=== PATIENT | female | born 1970 | race Caucasian/White ===

== ENCOUNTER 2017-03-06 19:30 | Inpatient (IN) | payer BC ==
[~2017-03-06] VITALS: Ht 162.6 cm; Wt 90.4 kg
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
[2017-03-07] MEDS ORDERED: ZYRTEC10 MG PO (01:32)
[2017-03-07] MEDS ORDERED: LISINOPRIL-HCT1 EACH PO (01:33)
[2017-03-07 05:16] LABS: BASOPHIL % 0.2 %; HEMATOCRIT 34.5 % (33.0-46.0); IMMATURE GRANULOCYTE # 0.1 K/uL (0.0-0.3); IMMATURE GRANULOCYTE % 0.5 %; LYMPHOCYTE # 0.7 K/uL (0.8-4.0); LYMPHOCYTE % 5.3 %; MCHC 34.8 gm/dL (32.0-36.5); MCV 86.3 fl (83.0-98.0); MONOCYTE # 0.2 K/uL (0.0-1.0); MONOCYTE % 1.4 %; MPV 9.4 fl (9.4-12.4); NEUTROPHIL # (ANC) 11.6 K/uL (1.8-7.8); NEUTROPHIL % 92.6 %; NRBC % 0 /100WBC (0-0.00); PLATELET COUNT 279 K/uL (150-450); RDW-CV 13.5 % (11.9-14.6); WBC 12.5 K/uL (4.0-11.0)
[2017-03-07] MEDS ORDERED: PRILOSEC20 MG PO (11:15)
[2017-03-07] MEDS ORDERED: FLONASE 50 MCG/16 GM NOSE (11:17)
[2017-03-10] MEDS ORDERED: PERCOCET 5-3251 EACH PO (15:19)
[2017-03-10] MEDS ORDERED: LOVENOX 4040 MG/0.4 SUB-Q (15:20)
[2017-03-10] MEDS ORDERED: ULTRAM50 MG PO (15:21)
== END 2017-03-10 15:48 | disposition disaster alternative care site (69) | DRG 494 ==
LOC: GACC 19:30 → G3N 20:30
PROVIDERS: ADMIT Orthopaedic Surgery Adult Reconstructive Orthopaedic Surgery
PROC: 0QSG05Z Reposition Right Tibia with External Fixation Device, Open Approach (ICD-10-PCS; principal; 2017-03-06)
DX: S82.51XB Displaced fracture of medial malleolus of right tibia, initial encounter for open fracture type I or II (principal); I10 Essential (primary) hypertension; V89.0XXA Person injured in unspecified motor-vehicle accident, nontraffic, initial encounter; Y93.55 Activity, bike riding; Z88.2 Allergy status to sulfonamides; J30.9 Allergic rhinitis, unspecified; R01.1 Cardiac murmur, unspecified
CPT/HCPCS: C1713; J0690; J0696; J1170; J1650; J1885; J2175; J2270; J2405; J2550; J3010; J7030; J7040; J7121

== ENCOUNTER → 2017-03-06 | Outpatient (CLI) | payer BC ==
[~2017-03-06] MED LIST: FLONASE 50 MCG/16 GM NOSE; LISINOPRIL-HCT1 EACH PO; LOVENOX 4040 MG/0.4 SUB-Q; PERCOCET 5-3251 EACH PO; PRILOSEC20 MG PO; ULTRAM50 MG PO; ZYRTEC10 MG PO
== END | disposition disaster alternative care site (69) ==
LOC: GAMB 18:59
DX: S82.891A Other fracture of right lower leg, initial encounter for closed fracture (principal); S82.892A Other fracture of left lower leg, initial encounter for closed fracture; M25.571 Pain in right ankle and joints of right foot; R11.0 Nausea; Z88.2 Allergy status to sulfonamides; X58.XXXA Exposure to other specified factors, initial encounter
CPT/HCPCS: A0425; A0427; J2405; J3010